=== PATIENT | male | born 1985 | race Caucasian/White ===

== ENCOUNTER 2022-03-22 08:32 | Emergency (ER) | payer OTHER ==
[2022-03-22] MEDS ORDERED: KEFLEX250 MG PO (09:02)
== END 2022-03-22 09:09 | disposition home or self-care (01) ==
LOC: FER 08:32
DX: S80.851A Superficial foreign body, right lower leg, initial encounter (principal); W45.8XXA Other foreign body or object entering through skin, initial encounter
CPT/HCPCS: 99283